=== PATIENT | female | born 1985 | race Caucasian/White ===

== ENCOUNTER 2024-04-08 11:02 | Emergency (ER) | payer OTHER, SELFPAY ==
[2024-04-08 11:11] VITALS: BP 131/74
[2024-04-08 11:53] LABS: ALT (SGPT) 31 U/L (0-35); AST (SGOT) 21 U/L (14-36); Albumin 4.7 g/dl (3.5-5.0); Alkaline Phosphatase 50 U/L (38-126); Blood Urea Nitrogen 20 mg/dl (7-17); Calcium 9.8 mg/dl (8.4-10.2); Carbon Dioxide 25 mmol/L (22-30); Chloride 105 mmol/L (98-107); Glucose 85 mg/dl (70-99); Potassium 3.9 mmol/L (3.5-5.1); Sodium 145 mmol/L (135-145); Total Protein 7.6 g/dl (6.3-8.2); eGFR > 60.00
[2024-04-08 11:56] LABS: COVID-19 Antigen Negative (Negative)
[2024-04-08 12:15] LABS: % Basophils 1.2 % (0-2); % Eosinophils 3.7 % (0-6); % Immature Granulocytes 0.8 % (0-0.5); % Lymphocytes 31.2 % (20.5-51.1); % Monocytes 9.4 % (1.7-9.3); % Neutrophils 53.7 % (42.2-75.2); Absolute Basophils 0.1 10^3/uL (0-0.2); Absolute Eosinophils 0.3 10^3/uL (0-0.7); Absolute Immature Granulocytes 0.1 10^3/uL (0-0.05); Absolute Lymphocytes 2.8 10^3/uL (1.2-3.4); Absolute Monocytes 0.9 10^3/uL (0.1-0.6); Absolute Neutrophils 4.9 10^3/uL (1.4-6.5); Hematocrit 45.5 % (37.0-47.0); Hemoglobin 16.5 g/dL (12.0-16.0); Mean Corp Hgb Conc. 36.3 g/dL (33.0-37.0); Mean Corpuscular Hgb 31.4 pg (27.0-31.0); Mean Corpuscular Volume 86.5 fL (81.0-99.0); Mean Platelet Volume 9.2 fL (7.4-10.4); Nucleated Red Blood Cells % 0 %; Platelet Count 471 10^3/uL (130-400); Red Blood Cell Count 5.26 10^6/uL (4.20-5.40); Red Cell Dist. Width 13.2 % (11.5-14.5)
--- NOTE | 2024-04-08 12:40 | ED.GENMED ---
History of Present Illness
<Tan Reed PA-C - Last Filed: 04/08/24 16:47>
General
Chief Complaint: Cold/Flu/URI Symptoms
Source: patient
Time Seen by Provider: 04/08/24 11:51
History of Present Illness
History of Present Illness:
39-year-old female with no significant past medical history presenting to the emergency department for evaluation of cough and cold-like symptoms that were ongoing since last week, also had a rash to her bilateral lower extremities that a ascended
into her chest, abdomen and pelvis but stopped at the neck (started on a prednisone taper by primary care provider) with improvement of the rash but states over the weekend and this morning would get very short of breath with any exertion which is
what prompted her to come to the ER today. Patient still notes a somewhat harsh nonproductive cough but states the cough is not really bothering her very much. She denies any chest pain, lightheadedness/dizziness, hemoptysis, lower extremity edema
with the cough. She does note intermittent palpitations however. Social history noncontributory. Family history was noted for father having WPW.
Past History
<Tan Reed PA-C - Last Filed: 04/08/24 16:47>
Past History
ED Past Medical History: Other (Renal calculus, Possible WPW)
ED Past Surgical History: None
Social History
Tobacco: Non-smoker
Alcohol: Occasional
Drug: None
Personal:
Living: with family
Review of Systems
<Tan Reed PA-C - Last Filed: 04/08/24 16:47>
Review of Systems
All Other Systems: ROS reviewed and negative except as documented in HPI and ROS
Phy Exam
<Tan Reed PA-C - Last Filed: 04/08/24 16:47>
Physical Exam
Physical Exam:
GENERAL: Alert , in no apparent distress
EYE: conjunctiva clear
NECK: Supple
ENT: o/p clr, mmm.
CARDIAC: Regular rate and rhythm
LUNGS: Clear breath sounds bilaterally, no acute respiratory distress, no wheezes/rales/rhonchi, intermittent harsh cough noted during the exam, while coughing there was a very faint wheeze noted
NEUROLOGICAL: Alert and oriented
SKIN: Warm and dry, skin intact.
MUSCULOSKELETAL: well perfused. no edema
PSYCH: Normal and appropriate interaction.
Scores
<Tan Reed PA-C - Last Filed: 04/08/24 16:47>
Heart Failure Risk
Heart Failure Risk Score: Not Applicable
Heart Score for Chest Pain Patients
STEMI patient?: Not applicable
Withdrawal Assessment of Alcohol
Withdrawal Assessment Completed?: Not applicable
Course
<Tan Reed PA-C - Last Filed: 04/08/24 16:47>
Orders/Labs/Results
Orders:
Orders
04/08/24 11:14
Electrocardiogram (*1) Urgent
Reason for Study: Shortness of Breath
EKG- Treatment ONCE
04/08/24 11:26
COVID-19 Antigen Urgent
Source: Nasal Swab
Complete Blood Count/With Diff Urgent
Comprehensive Metabolic Panel Urgent
NT-proBNP Urgent
Comment: ADD ON
Influenza A+B Rapid Molecular Urgent
TONIO Source: Nasal Swab
Specimen Description:
04/08/24 12:14
Add On- LAB Urgent
Tests Added?: BNP
04/08/24 12:57
D-Dimer Urgent
04/08/24 13:43
CR Chest - 2 Views Urgent
Comment:
Reason For Exam: cough
04/08/24 15:50
Amoxicillin [Amoxil] 500 mg PO NOW STA
Azithromycin [Zithromax] 500 mg PO NOW STA
Abnormal Lab Results
04/08/24
11:26
Hgb 16.5 H g/dL
(12.0-16.0)
MCH 31.4 H pg
(27.0-31.0)
Plt Count 471 H 10^3/uL
(130-400)
Abs Immat Gran (auto) 0.1 H 10^3/uL
(0-0.05)
Absolute Monos (auto) 0.9 H 10^3/uL
(0.1-0.6)
Immature Gran % 0.8 H %
(0-0.5)
Monocytes % 9.4 H %
(1.7-9.3)
BUN 20 H mg/dl
(7-17)
04/08/24 11:26
04/08/24 11:26
Vital Signs
Initial and Last Documented VS:
Initial Vital Signs
Temp Pulse Resp BP Pulse Ox
99.0 F 111 18 131/74 97
04/08/24 11:11 04/08/24 11:11 04/08/24 11:11 04/08/24 11:11 04/08/24 11:11
Last Documented Vital Signs
Temp Pulse Resp BP Pulse Ox
99.0 F 106 18 108/76 96
04/08/24 11:11 04/08/24 15:00 04/08/24 15:00 04/08/24 15:00 04/08/24 15:00
<Berny Bravo Jr., PA-C - Last Filed: 04/08/24 17:34>
Orders/Labs/Results
Orders:
Orders
04/08/24 11:14
Electrocardiogram (*1) Urgent
Reason for Study: Shortness of Breath
EKG- Treatment ONCE
04/08/24 11:26
COVID-19 Antigen Urgent
Source: Nasal Swab
Complete Blood Count/With Diff Urgent
Comprehensive Metabolic Panel Urgent
NT-proBNP Urgent
Comment: ADD ON
Influenza A+B Rapid Molecular Urgent
TONIO Source: Nasal Swab
Specimen Description:
04/08/24 12:14
Add On- LAB Urgent
Tests Added?: BNP
04/08/24 12:57
D-Dimer Urgent
04/08/24 13:43
CR Chest - 2 Views Urgent
Comment:
Reason For Exam: cough
04/08/24 15:50
Amoxicillin [Amoxil] 500 mg PO NOW STA
Azithromycin [Zithromax] 500 mg PO NOW STA
Abnormal Lab Results
04/08/24
11:26
Hgb 16.5 H g/dL
(12.0-16.0)
MCH 31.4 H pg
(27.0-31.0)
Plt Count 471 H 10^3/uL
(130-400)
Abs Immat Gran (auto) 0.1 H 10^3/uL
(0-0.05)
Absolute Monos (auto) 0.9 H 10^3/uL
(0.1-0.6)
Immature Gran % 0.8 H %
(0-0.5)
Monocytes % 9.4 H %
(1.7-9.3)
BUN 20 H mg/dl
(7-17)
04/08/24 11:26
04/08/24 11:26
Vital Signs
Initial and Last Documented VS:
Initial Vital Signs
Temp Pulse Resp BP Pulse Ox
99.0 F 111 18 131/74 97
04/08/24 11:11 04/08/24 11:11 04/08/24 11:11 04/08/24 11:11 04/08/24 11:11
Last Documented Vital Signs
Temp Pulse Resp BP Pulse Ox
99.0 F 106 18 108/76 96
04/08/24 11:11 04/08/24 15:00 04/08/24 15:00 04/08/24 15:00 04/08/24 15:00
<Tan Reed PA-C - Last Filed: 04/08/24 16:47>
MDM/Problems Addressed
Differential Diagnosis Includes:
Bronchitis, pneumonia, COVID/flu, PE considered given her tachycardia, asthma
MDM/Problems Addressed:
39-year-old female presenting to the emergency department for evaluation of cold and flulike symptoms that began a week ago, also had a rash associated with the symptoms with the rash resolving following initiation of steroids however still having
the cough but the last couple of days noted shortness of breath with significant exertional component. Patient in no acute distress here however she did have mild tachycardia while in triage. Harsh cough noted during exam but maintaining oxygen
saturation. Labs initiated. I did add on a BNP and D-dimer to her lab work. Imaging pending D-dimer results. Will also check an ambulatory pulse ox.
<Tan Reed PA-C - Last Filed: 04/08/24 16:47>
*Radiology
Radiology exam reviewed: radiology read reviewed
*Pulse Oximetry
Patient hypoxic: no
*EKG
Heart Rate: 93
Rate: normal
Rhythm: sinus
Ischemia: no ischemia
*Critical Care Note
Total Time (30-74mins, 75-104mins- exclusive of procedures): Not Applicable
<Berny Bravo Jr., PA-C - Last Filed: 04/08/24 17:34>
Update Note
Update Note:
Shyam Bravo PA-C patient with likely pneumonia on chest x-ray. Started on antibiotics otherwise stable for discharge. Return precautions given.
ED Attending Note
<Tan Reed PA-C - Last Filed: 04/08/24 16:47>
-
Portions of this chart may have been created with voice recognition software.� Occasional wrong word or��sound alike� substitutions may have occurred due to the inherent limitations of voice recognition software.
Discharge Plan
Departure
Patient Disposition: Home (Routine Discharge)
Date of Disposition: 04/08/24
Time of Disposition: 15:56
Patient with high blood pressure during this ER visit?: No
Condition: Good
Covid-19: Not Applicable
Discharge Problem:
Pneumonia
Instructions: Pneumonia in adults
Prescriptions:
New
amoxicillin 875 mg tablet
875 mg PO BID 7 Days Qty: 14 0RF
azithromycin 500 mg tablet
500 mg PO DAILY 2 Days Qty: 2 0RF
albuterol sulfate 90 mcg/actuation aerosol powdr breath activated
2 inh inhalation Q6H PRN (Reason: shortness of breath) Qty: 1 0RF
No Action
[facility]#95-ferrous fumarate-FA [] 1 EACH tablet
1 ea PO DAILY
acetaminophen 325 MG tablet
650 mg PO Q4HPRN PRN (Reason: mild pain) 0RF
sennosides-docusate sodium 1 TABLET tablet
1 tab PO DAILYPRN PRN (Reason: constipation) 0RF
ibuprofen 600 MG tablet
600 mg PO Q6HPRN PRN (Reason: moderate pain/cramps) Qty: 30 0RF
ondansetron HCl 4 mg tablet
4 mg PO TID PRN (Reason: nausea and vomiting) Qty: 10 0RF
ondansetron 4 mg tablet,disintegrating
4 mg PO Q8H PRN (Reason: nausea and vomiting) Qty: 10 0RF
ibuprofen 600 mg tablet
600 mg PO TID PRN (Reason: pain) Qty: 14 0RF
oxycodone 5 mg tablet
5 mg PO Q8H PRN (Reason: pain) Qty: 7 0RF
Referrals:
Nelson,Amparo, SECURITIES SUPERVISOR [Family Provider] -
Activity Restrictions/Additional Instructions:
You came to the emergency department today with concerns of cold-like symptoms that been ongoing. Here you are found have a potential pneumonia on your x-ray. You are started on antibiotics. Please take these as prescribed as well as the inhaler
as needed. Return to the emergency department for any worsening, new or concerning symptoms.
Interventions
Interventions:
*Risk Screen - Suicide Last Done: 04/08/24 12:48
*General Assessment Last Done: 04/08/24 12:47
*Neglect/Abuse Screening Last Done: 04/08/24 12:48
ED- Fall Risk Assessment Last Done: 04/08/24 12:48
*ED COVID-19 Vaccine History Last Done: 04/08/24 12:47
*Nursing Disposition Last Done: 04/08/24 16:22
ED- Cardiac Assessment Last Done: 04/08/24 12:58
ED- Pulmonary Assessment Last Done: 04/08/24 12:58
Discharge Date and Time
Discharge Date/Time: 04/08/24 16:23
Print Language: CANADIAN
--- NOTE | 2024-04-08 12:46 | EDRN ---
Pt went to xray but order was cx'd. Pt is back in room.
[2024-04-08 12:47] VITALS: BMI 33.1
[2024-04-08 12:49] VITALS: BP 126/89
--- NOTE | 2024-04-08 13:00 | EDRN ---
Pt just ambulated in w/ ED PCT Christos at this time.
[2024-04-08 13:06] LABS: NT-proBNP < 20.0 pg/ml
[2024-04-08 13:29] LABS: D-Dimer 0.28 ug/mlFEU (0.00-0.50)
[2024-04-08 14:38] VITALS: BP 115/73
[2024-04-08 15:00] VITALS: BP 108/76
[2024-04-08] MEDS: ZITHROMAX 500 MG PO (16:11)
[2024-04-08] MEDS: AMOXIL 500 MG PO (16:12)
== END 2024-04-08 16:23 | disposition home or self-care (01) ==
LOC: EMR 11:02
PROVIDERS: Physician Assistant Medical; Student in an Organized Health Care Education/Training Program; EMERGENCY PHYSICIAN Emergency Medicine; FAMILY PHYSICIAN Nurse Practitioner
DX: J18.9 Pneumonia, unspecified organism (principal)
CPT/HCPCS: 99285; 71046; 80053; 83880; 85025; 85379; 87502; 87811; 93005

== ENCOUNTER 2024-05-09 22:11 | Emergency (ER) | payer OTHER, SELFPAY ==
[2024-05-09 22:12] VITALS: BMI 33.9
[2024-05-09 22:22] VITALS: BP 136/78
[2024-05-09 22:45] LABS: % Basophils 0.9 % (0-2); % Eosinophils 2.6 % (0-6); % Immature Granulocytes 0.3 % (0-0.5); % Lymphocytes 30.6 % (20.5-51.1); % Monocytes 7.2 % (1.7-9.3); % Neutrophils 58.4 % (42.2-75.2); Absolute Basophils 0.1 10^3/uL (0-0.2); Absolute Eosinophils 0.3 10^3/uL (0-0.7); Absolute Monocytes 0.7 10^3/uL (0.1-0.6); Absolute Neutrophils 5.6 10^3/uL (1.4-6.5); Hemoglobin 14.8 g/dL (12.0-16.0); Mean Corp Hgb Conc. 35.2 g/dL (33.0-37.0); Mean Corpuscular Hgb 30.6 pg (27.0-31.0); Mean Corpuscular Volume 86.8 fL (81.0-99.0); Nucleated Red Blood Cells % 0 %; Platelet Count 379 10^3/uL (130-400); Red Blood Cell Count 4.84 10^6/uL (4.20-5.40); Red Cell Dist. Width 12.7 % (11.5-14.5); White Blood Cell Count 9.7 10^3/uL (4.8-10.8)
[2024-05-09 22:54] LABS: HCG, Serum Qualitative Screen Negative
[2024-05-09 22:59] LABS: ALT (SGPT) 27 U/L (0-35); AST (SGOT) 26 U/L (14-36); Albumin 4.7 g/dl (3.5-5.0); Alkaline Phosphatase 44 U/L (38-126); Blood Urea Nitrogen 14 mg/dl (7-17); Calcium 9.5 mg/dl (8.4-10.2); Carbon Dioxide 27 mmol/L (22-30); Chloride 102 mmol/L (98-107); Glucose 123 mg/dl (70-99); Potassium 4.5 mmol/L (3.5-5.1); Sodium 137 mmol/L (135-145); Total Bilirubin 0.8 mg/dl (0.2-1.3); Total Protein 7.4 g/dl (6.3-8.2); eGFR > 60.00
--- NOTE | 2024-05-10 00:06 | ED.GENMED ---
History of Present Illness
General
Chief Complaint: Pneumonia Symptoms
Source: patient
Exam Limitations: none
Time Seen by Provider: 05/09/24 23:28
History of Present Illness
History of Present Illness:
This is a 39 year old female that comes in with c/o cough and SOB. States that 4 weeks ago she has Pneumonia. States that she was on 2 antibiotics, Zithromax and Amoxicillin. State that she started to feel better and then she didn't feel good
again. States that she has had a cough and the past few days she has felt worse. State that she has pain in her chest and feels SOB. States that the chest pain is with breathing. States that she has felt dizzy. Denies any fever, chills, abd pain,
nausea, vomiting, diarrhea, headache, urinary burning.
Past History
Past History
ED Past Medical History: Other (Renal calculus, Possible WPW, PNA, )
ED Past Surgical History: None
Social History
Tobacco: Non-smoker
Alcohol: Occasional
Drug: None
Personal:
Living: with family
Review of Systems
Review of Systems
All Other Systems: ROS reviewed and negative except as documented in HPI and ROS
Constitutional: Reports no symptoms; Denies fever
EENT: Reports no symptoms
Respiratory: Reports cough and trouble breathing
Cardiac: Reports chest pain
ABD/GI: Reports no symptoms; Denies abdominal pain, nausea, vomiting or diarrhea
: Reports no symptoms; Denies dysuria, frequency or urgency
Musculoskeletal: Reports no symptoms
Skin: Reports no symptoms
Neurological: Reports dizzy; Denies headache
Psychiatric: Reports no symptoms
Phy Exam
General Physical Exam
General Presentation: well appearing and no apparent distress
General age: appears stated age
General Skin: warm and dry
General Habitus: normal
General Mental: alert
General Hydration: appears well hydrated
ENT Exam
ENT Exam: TM's normal, pharynx normal and neck supple
Eye Exam
Eye Exam: EOMI
Cardiovascular Exam
Cardiovascular Exam: regular rate/rhythm, no edema, no murmur and normal peripheral pulses
Pulmonary Exam
Pulmonary Exam: no respiratory distress, no rales, no crackles, no rhonchi and other (Exp wheezing at bases. Dry cough noted)
Gastrointestinal Exam
Gastrointestinal Exam: normal bowel sounds, non tender, soft, no organomegaly, no pulsatile mass and non distended
Musculoskeletal Exam
Musculoskeletal Exam: full ROM and no edema
Skin Exam
Skin Exam: normal color, warm/dry, no rash and no petechia
Psychiatric Exam
Psychiatric Exam: normal mood/affect
Sepsis
Sepsis Screening
Sepsis Assessment: Sepsis Ruled Out
Sepsis Screen
Sepsis Screen: Sepsis Ruled Out
Date: 05/10/24
Time: 02:16
Course
Orders/Labs/Results
Orders:
Orders
05/09/24 22:29
CR Chest - 2 Views Urgent
Comment: recent left sided pneumonia
Reason For Exam: chest pain with inhalation, cough
05/09/24 22:30
Test Result ONCE
05/09/24 22:37
Complete Blood Count/With Diff Urgent
Comprehensive Metabolic Panel Urgent
HCG, Serum Qualitative Screen Urgent
05/09/24 23:59
D-Dimer Urgent
Dexamethasone Sod Phosphate [Decadron] 20 mg IV NOW STA
Ipratropium/Albuterol Sulfate [Duoneb] 3 ml INH R NOW ONE
05/10/24 00:09
Electrocardiogram (*1) Urgent
Reason for Study: Shortness of Breath
EKG- Treatment ONCE
Abnormal Lab Results
05/09/24
22:37
Absolute Monos (auto) 0.7 H 10^3/uL
(0.1-0.6)
Glucose 123 H mg/dl
(70-99)
05/09/24 22:37
05/09/24 22:37
Hyperglycemia, HCG negative. D-dimer <0.27
Vital Signs
Initial and Last Documented VS:
Initial Vital Signs
Temp Pulse Resp BP Pulse Ox
98.1 F 105 24 136/78 98
05/09/24 22:22 05/09/24 22:22 05/09/24 22:22 05/09/24 22:22 05/09/24 22:22
Last Documented Vital Signs
Temp Pulse Resp BP Pulse Ox
98.1 F 105 24 136/78 99
05/09/24 22:22 05/09/24 22:22 05/09/24 22:22 05/09/24 22:22 05/09/24 23:43
MDM/Problems Addressed
Differential Diagnosis Includes:
PE, Cough, Wheezing.
MDM/Problems Addressed:
This is a 39 year old female that comes in with c/o cough and SOB. States that she has chest pain with breathing and has felt dizzy.
Will get labs, ECG, chest X-ray. Will give Duo Neb and steroids.
Back into see patient. Patient states that she is feeling better after the neb treatment. Explained that this is most likely inflammation left from her Pneumonia. Will give patient steroid for the next 5 days. Patient to follow up with the family
doctor. Return with any concerns.
Chronic conditions affecting care:
NA
Acute Exacerbation and/or Progression of Chronic Illness:
NA
*Radiology
Radiology exam reviewed: preliminary read by ED provider (Chest- negative for active disease. )
*Pulse Oximetry
Patient hypoxic: no
*Side Sawyer Interpretation
Rate: Side Sawyer- N/A
*Critical Care Note
Total Time (30-74mins, 75-104mins- exclusive of procedures): Not Applicable
ED Attending Note
-
Portions of this chart may have been created with voice recognition software.� Occasional wrong word or��sound alike� substitutions may have occurred due to the inherent limitations of voice recognition software.
Discharge Plan
Departure
Patient Disposition: Home (Routine Discharge)
Date of Disposition: 05/10/24
Time of Disposition: 02:11
Patient with high blood pressure during this ER visit?: No
Condition: Good
Covid-19: Not Applicable
Discharge Problem:
Cough in adult, Wheezing
Instructions: Wheezing in adults - ED discharge instructions, Cough in adults - ED discharge instructions, BLOOD PRESSURE
Prescriptions:
New
prednisone 20 mg tablet
40 mg PO DAILY Qty: 10 0RF
[facility] [] 1 EACH tablet
1 ea PO DAILY
acetaminophen 325 MG tablet
650 mg PO Q4HPRN PRN (Reason: mild pain) 0RF
sennosides-docusate sodium 1 TABLET tablet
1 tab PO DAILYPRN PRN (Reason: constipation) 0RF
ibuprofen 600 MG tablet
600 mg PO Q6HPRN PRN (Reason: moderate pain/cramps) Qty: 30 0RF
ondansetron HCl 4 mg tablet
4 mg PO TID PRN (Reason: nausea and vomiting) Qty: 10 0RF
ondansetron 4 mg tablet,disintegrating
4 mg PO Q8H PRN (Reason: nausea and vomiting) Qty: 10 0RF
ibuprofen 600 mg tablet
600 mg PO TID PRN (Reason: pain) Qty: 14 0RF
oxycodone 5 mg tablet
5 mg PO Q8H PRN (Reason: pain) Qty: 7 0RF
amoxicillin 875 mg tablet
875 mg PO BID 7 Days Qty: 14 0RF
azithromycin 500 mg tablet
500 mg PO DAILY 2 Days Qty: 2 0RF
albuterol sulfate 90 mcg/actuation aerosol powdr breath activated
2 inh inhalation Q6H PRN (Reason: shortness of breath) Qty: 1 0RF
Referrals:
Amparo Damon CRNP [Family Provider] - Call in 1-3 days for appt
Activity Restrictions/Additional Instructions:
As discussed, your blood work is normal. Your chest X-ray is negative for any acute process. Please increase your water intake to 8-8oz glasses daily. You have had a prescription sent to your Pharmacy for Prednisone for the next 5 days. This will
decreased the inflammation and decrease the coughing. Follow up with the family doctor for recheck. IF YOU HAVE INCREASED SHORTNESS OF BREATH, OR YOU HAVE ANY OTHER CONCERNS PLEASE RETURN TO THE EMERGENCY ROOM
Interventions
Interventions:
*Risk Screen - Suicide Last Done: 05/09/24 22:22
*General Assessment Last Done: 05/09/24 22:22
*Neglect/Abuse Screening Last Done: 05/09/24 22:22
ED- Fall Risk Assessment Last Done: 05/09/24 22:22
*ED COVID-19 Vaccine History Last Done: 05/09/24 22:22
ED- Cardiac Assessment Last Done: 05/09/24 23:43
ED- Pulmonary Assessment Last Done: 05/09/24 23:43
Discharge Date and Time
Print Language: ALGERIAN
[2024-05-10] MEDS: DECADRON 20 MG IV (00:20)
[2024-05-10] MEDS: DUONEB 3 ML INH (00:20)
[2024-05-10 01:09] LABS: D-Dimer < 0.27 ug/mlFEU (0.00-0.50)
[2024-05-10 02:20] VITALS: BP 118/74
== END 2024-05-10 02:26 | disposition home or self-care (01) ==
LOC: EMR 22:11
PROVIDERS: Clinical Nurse Specialist Family Health; EMERGENCY PHYSICIAN Student in an Organized Health Care Education/Training Program; FAMILY PHYSICIAN Nurse Practitioner
DX: R05.9 Cough, unspecified (principal); R06.2 Wheezing; R06.02 Shortness of breath; R07.1 Chest pain on breathing; R42 Dizziness and giddiness; Z87.01 Personal history of pneumonia (recurrent); Z87.442 Personal history of urinary calculi; Z88.2 Allergy status to sulfonamides
CPT/HCPCS: 99284; 96374; 94640; 71046; 80053; 84703; 85025; 85379